=== PATIENT | male | born 1955 | race Caucasian/White ===

== ENCOUNTER 2017-04-27 05:03 | Inpatient (IN) | payer BC, OTHER ==
[2017-03-15 11:12] VITALS: BMI 28.0
--- NOTE | 2017-03-15 11:37 | PAT Medication Instructions ---
Service Date Mar 15, 2017. Current Home Medication List Famotidine (Pepcid), 20 MG PO DAILY PRN for STOMACH Fexofenadine Hcl (Fe Allergy), 1 TAB PO BID PRN for ALLERGIES Finasteride (Propecia), 1 MG PO QAM Ibuprofen (Advil), 200-600 MG PO Q4H PRN for Pain Simvastatin (Zocor), 20 MG PO QPM Medication Instructions For Your Scheduled Surgery - Check with surgeon for instructions: Ibuprofen (Advil), 200-600 MG PO Q4H PRN for Pain - Hold the following medications the morning of surgery: Finasteride (Propecia), 1 MG PO QAM Fexofenadine Hcl (Fe Allergy), 1 TAB PO BID PRN for ALLERGIES (if needed) Famotidine (Pepcid), 20 MG PO DAILY PRN for STOMACH (if needed) - Take the following medications as scheduled the night before surgery: Simvastatin (Zocor), 20 MG PO QPM Fexofenadine Hcl (Fe Allergy), 1 TAB PO BID PRN for ALLERGIES (if needed) Famotidine (Pepcid), 20 MG PO DAILY PRN for STOMACH (if needed) If you have any questions please call us at [phone] or [phone] or [phone]
--- NOTE | 2017-03-15 12:17 | DIAGNOSTIC IMAGING REPORT ---
CHEST 2 VIEWS ROUTINE CLINICAL HISTORY: 61 years-old Male presenting with preoperative assessment. TECHNIQUE: PA and lateral views of the chest were obtained. COMPARISON: None. FINDINGS: Cardiomediastinal silhouette normal. Hyperinflation. No focal infiltrate. No pleural effusion or pneumothorax. Osseous structures normal. Upper abdomen normal. IMPRESSION: 1. Hyperinflation. Otherwise no acute cardiopulmonary disease. Electronically signed by: Surya Lopez M.D. 03/15/2017 12:15 PM Dictated Date/Time: 03/15/2017 12:15 PM
[2017-03-15 12:30] LABS: BASO % 0.7 %; BASO ABS # 0.03 K/uL (0-0.2); COMPLETE YES; EOS % 2.7 %; HEMATOCRIT 41.7 % (42-52); IG% 0.2 %; LYMPH % 29.5 %; MEAN CELL VOLUME 91.4 fL (80-100); MEAN CORPUSCULAR HEMOGLOBIN 30.3 pg (25-34); MEAN CORPUSCULAR HGB CONC 33.1 g/dl (32-36); MEAN PLATELET VOLUME 9.6 fL (7.4-10.4); MONO % 9.8 %; NEUT % 57.1 %; PLATELET COUNT 207 K/uL (130-400); RED BLOOD COUNT 4.56 M/uL (4.7-6.1)
[2017-03-15 12:41] LABS: INR 0.9 (0.9-1.1); PARTIAL THROMBOPLASTIN RATIO 1.1; PROTHROMBIN TIME (PATIENT) 10.1 SECONDS (9.0-12.0)
[2017-03-15 14:15] LABS: BUN/CREATININE RATIO 16.3 (10-20); CREATININE 0.87 mg/dl (0.60-1.40); POTASSIUM 4.4 mmol/L (3.5-5.1)
--- NOTE | 2017-04-24 09:17 | HISTORY & PHYSICAL EXAMINATION ---
DATE OF ADMISSION: 04/27/2017 CHIEF COMPLAINT: Bilateral knee pain and discomfort, right side greater than left. HISTORY OF PRESENT ILLNESS: The patient is a 61-year-old gentleman who presents for surgical treatment of his right knee. He has a fairly long history of bilateral knee pain and discomfort, right side greater than left. He recently moved to this area from [place]. He does have a history of open knee surgery in 1970 on his right knee and one in 1972 on the left. He has continued to have persistent and progressive pain that gradually gotten worse year by year over the past 10 years. It is limiting his walking ability. The more he walks, the more it hurts. It is global pain. He has nighttime pain. He takes Advil with minimal relief. He would like to proceed with a right knee replacement. PAST MEDICAL HISTORY: 1. Depression. 2. Elevated cholesterol. 3. Osteoarthritis. 4. BPH. PAST SURGICAL HISTORY: 1. Right knee surgery in 1970. 2. Left knee in 1972. ALLERGIES: Seasonal. CURRENT MEDICATIONS: 1. Simvastatin. 2. Finasteride. 3. Advil. SOCIAL HISTORY: A 61-year-old male. He is . He is from [facility] but now lives here. He does not smoke. FAMILY HISTORY: Negative for heart disease, diabetes, or blood clots. REVIEW OF SYSTEMS: Negative for diabetes. Denies any chest pain, shortness of breath. No bleeding problems. He does have multiple other musculoskeletal aches and pains. No history of DVT or PE. PHYSICAL EXAMINATION: GENERAL: A pleasant, middle-aged male. He looks to be in good health. HEENT: Benign. NECK: Supple. No lymphadenopathy. LUNGS: Clear to auscultation. HEART: Has a regular rate and rhythm. ABDOMEN: Soft, nontender, nondistended. EXTREMITIES: Grossly neurovascularly intact except as follows. Examination of the right knee reveals the patient walks with a slight varus alignment to his knee. He does limp on the right side. He has about 15 degree flexion contracture with knee and can bend to about 100 degrees. It is pretty stiff. He has no pain with hip motion. He has a moderate size joint effusion. He does have a medial incision that is well-healed. X-RAYS: X-rays of the right knee reviewed. It shows advanced right knee tricompartmental DJD. He has slight valgus alignment. He has advanced disease in all 3 compartments. ASSESSMENT: A 61-year-old male with a history of bilateral open knee surgery in the past in the 70s with advanced bilateral knee pain and degenerative joint disease, right side more symptomatic than the left. He would like to proceed with a right knee replacement. PLAN: We are going to take him to the operating room and do a right total knee replacement. The risks and benefits of this procedure were explained to the patient including but not limited to DVT, PE, , infection, neurological injury, vascular injury, bleeding problem, pain, limited range of motion, stiffness, failure to relieve symptoms, incomplete relief of symptoms, need for further surgery in the future, fracture, etc. The patient understands and desires to proceed. Informed consent was obtained. We will try to use his previous open incision if possible. We will probably put some vancomycin in the cement due to his previous surgery. As far as discharge plans, he is planning to be discharged to home using [facility] home health program.
[~2017-04-27] VITALS: Ht 177.8 cm; Wt 89.4 kg
[2017-04-27] VITALS (10 sets, daily range): BP systolic 99–128; BP diastolic 56–79; PULSE 46–71; TEMP 36.3–37.4; O2SAT 93–100; Ht 177.8 cm; Wt 89.4 kg
[~2017-04-27 05:03] MED LIST: FAMO20TA11 PO; FEXO1TAB49 PO; FINA1TAB3 PO; IBUP-1050 PO; SIMV20TA2 PO
[2017-04-27] MEDS ORDERED: BUPIVACAINE LIPOSOME 266 MG, BUPIVACAINE/EPINEPHRINE INJ 50 ML, SODIUM CHLORIDE 0.9% PF... INFIL SCH ×3 (06:00)
[2017-04-27] MEDS ORDERED: LACTATED RINGER'S 1000ML 1,000 ML IV SCH (06:00)
[2017-04-27] MEDS ORDERED: FAMOTIDINE 20 MG TAB PO SCH (06:00)
[2017-04-27] MEDS ORDERED: LACTATED RINGER'S 1000ML IV SCH (06:00)
[2017-04-27] MEDS ORDERED: METOCLOPRAMIDE HCL 10 MG TAB PO SCH (06:00)
[2017-04-27] MEDS ORDERED: LACTATED RINGER'S 1000ML 500 ML IV ONE (06:00)
[2017-04-27] MEDS ORDERED: ACETAMINOPHEN 500 MG TAB PO SCH (06:00)
[2017-04-27] MEDS ORDERED: CEFAZOLIN 2000MG IV PUSH 10 ML IV SCH (06:00)
[2017-04-27] MEDS ORDERED: GABAPENTIN 300 MG CAP PO SCH (06:00)
[2017-04-27] MEDS ORDERED: TRANEXAMIC ACID INJ 1,000 MG in SYRINGE 0 ML IV SCH (06:00)
[2017-04-27] MEDS ORDERED: SCOPOLAMINE 1.5 MG TDSY TD SCH (06:00)
[2017-04-27] MEDS ORDERED: BUPIVACAINE 0.25% 30 ML VIAL ONE (06:19)
[2017-04-27] MEDS ORDERED: BUPIVACAINE 0.5 % 5 MG/1 ML PF 10ML VIAL ONE (06:19)
[2017-04-27] MEDS ORDERED: MIDAZOLAM HCL 1 MG/ML 2ML VIAL ONE ×2 (06:42→06:43)
[2017-04-27] MEDS ORDERED: FENTANYL CITRATE INJ 50 MCG/1 ML 2 ML VIAL ONE (06:43)
[2017-04-27] MEDS ORDERED: BACITRACIN 50000 UNIT VIAL ONE (06:51)
[2017-04-27] MEDS ORDERED: BUPIVACAINE/EPINEPHRINE 0.25% 1:200,000 30 ML VIAL ONE (06:51)
[2017-04-27] MEDS ORDERED: BUPIVACAINE LIPOSOME 1/3% 266 MG/20 ML VIAL INFIL ONE (06:51)
[2017-04-27] MEDS ORDERED: SODIUM CHLORIDE 0.9% PF 50 ML VIAL ONE (06:51)
--- NOTE | 2017-04-27 06:55 | History & Physical Bridge Note ---
H&P Re-Evaluation Bridge Note: I have examined the patient, reviewed the History & Physical and in the interval since the performance of the History & Physical I have noted the following changes of clinical significance: No changes noted
[2017-04-27] MEDS ORDERED: VANCOMYCIN HCL 1000MG/20ML VIAL ONE (07:08)
[2017-04-27] MEDS ORDERED: PROPOFOL IV EMULSION 10 MG/ML 20 ML VIAL IV ONE (07:35)
[2017-04-27] MEDS ORDERED: MoRPHine SULFATE 2 MG/ML CARP ONE (08:59)
--- NOTE | 2017-04-27 09:12 | [facility] Post Operative Brief Note ---
Immediate Operative Summary Operative Date Apr 27, 2017. Pre-Operative Diagnosis Right knee degenerative joint disease Post-Operative Diagnosis Right knee degenerative joint disease Procedure(s) Performed Right total knee arthroplasty Surgeon Dr. Fernando Diaz Waste Reduction Coordinator Surgeon(s) Sudhir Puri PA-C Estimated Blood Loss 150cc Findings Right Knee DJD Fluids (cc crystalloids) 1750 cc Specimens A. Right knee bone and tissue Drains HMV Right Knee Anesthesia Spinal Complication(s) None Disposition Recovery Room / PACU
[2017-04-27] MEDS ORDERED: METOCLOPRAMIDE HCL INJ 5 MG/ML 2 ML VIAL IV PRN (09:15)
[2017-04-27] MEDS ORDERED: TAMSULOSIN HCL 0.4 MG CAP PO PRN (09:15)
[2017-04-27] MEDS ORDERED: ALUMINUM/MAGNESIUM/SIMETH (MAALOX MAX) 30 ML UDC PO PRN (09:15)
[2017-04-27] MEDS ORDERED: BISACODYL 10 MG SUPP PR PRN (09:15)
[2017-04-27] MEDS ORDERED: FEXOFENADINE HCL 180 MG TAB PO PRN (09:15)
[2017-04-27] MEDS ORDERED: ZOLPIDEM TARTRATE 5 MG TAB PO PRN (09:15)
[2017-04-27] MEDS ORDERED: FAMOTIDINE 20 MG TAB PO PRN (09:15)
[2017-04-27] MEDS ORDERED: ONDANSETRON INJ 2 MG/ML 2 ML VIAL IV PRN (09:15)
[2017-04-27] MEDS ORDERED: MAGNESIUM HYDROXIDE SUSP 30 ML UDC PO PRN (09:15)
[2017-04-27] MEDS ORDERED: SILVER SULFADIAZINE 1% CR 50 GM JAR EXT PRN (09:15)
[2017-04-27] MEDS ORDERED: DiphenhydrAMINE HCL 50 MG/ML VIAL IV PRN (09:15)
[2017-04-27] MEDS ORDERED: MoRPHine SULFATE 2 MG/ML CARP IV PRN (09:15)
--- NOTE | 2017-04-27 09:37 | DIAGNOSTIC IMAGING REPORT ---
R KNEE 1 OR 2 VIEWS ROUTINE CLINICAL HISTORY: Postop examination DEGENERATIVE ARTHRITIS COMPARISON: Outside study dated 10/05/2016 DISCUSSION: There are postsurgical changes of a total right knee arthroplasty and patellar resurfacing. Overlying skin suzie and surgical drains are evident. The femoral tibial components appear well seated. There is air within the soft tissues consistent with recent surgery. IMPRESSION: Postsurgical changes of a total right knee arthroplasty. Electronically signed by: Faheem Cassidy M.D. 04/27/2017 9:36 AM Dictated Date/Time: 04/27/2017 9:35 AM
--- NOTE | 2017-04-27 09:55 | Anesthesiology Progress Note ---
Anesthesia Post Op Note Date & Time Apr 27, 2017 at 09:55 Vital Signs Pain Intensity: 0 Vital Signs Past 12 Hours Date Time Temp Pulse Resp B/P (MAP) Pulse Ox O2 Delivery O2 Flow Rate FiO2 04/27/17 09:50 36.4 55 13 106/66 100 Nasal Cannula 2 04/27/17 09:14 36.4 98 12 112/68 100 Nasal Cannula 2 04/27/17 06:07 36.8 71 18 128/79 97 Room Air Notes Mental Status: alert / awake / arousable, participated in evaluation Pt Amnestic to Procedure: Yes Nausea / Vomiting: adequately controlled Pain: adequately controlled Airway Patency, RR, SpO2: stable & adequate BP & HR: stable & adequate Hydration State: stable & adequate Neuraxial Anesthesia: was administered, sensory block is resolving Anesthetic Complications: no major complications apparent
--- NOTE | 2017-04-27 09:58 | OPERATIVE REPORT ---
DATE OF OPERATION: 04/27/2017 SURGEON: Fernando Diaz MD TAX MAP TECHNICIAN: BERNIE Juárez. PREOPERATIVE DIAGNOSIS: Right knee degenerative joint disease. POSTOPERATIVE DIAGNOSIS: Same. PROCEDURE PERFORMED: Right cemented posterior stabilized total knee arthroplasty. COMPLICATIONS: None. ESTIMATED BLOOD LOSS: 150 mL. FLUID REPLACEMENT: 1750 mL crystalloid fluid replacement. TOURNIQUET TIME: 60 minutes at 300 mmHg. ANESTHESIA: Spinal with adductor canal block. DRAINS: Hemovac right knee x2. SPECIMENS: Right knee sent for pathology. OPERATIVE INDICATIONS: The patient is a 61-year-old gentleman who has had a long history of knee problems. He underwent open right knee surgery back in 1972. He has been through extensive conservative treatment over the years. Pain just gotten gradually worse and more debilitating. He developed a significant flexion contracture and valgus deformity to his knee. He elects to proceed with surgical treatment. OPERATIVE FINDINGS: Operative findings revealed advanced right knee tricompartment DJD. He had extensive grade 4 changes in the lateral femoral condyle and lateral tibial plateau and the posterolateral tibial plateau especially. He had a chronic ACL deficiency. He had osteophytes that were completely grown over the intercondylar notch area. He had grade 4 changes in the medial and patellofemoral compartment. His medial meniscus was absent. OPERATIVE IMPLANTS: Operative implants consisted of: 1. Biomet Vanguard size 75 right posterior bifemoral component. 2. Biomet size 87 tibial tray. 3. A 10 mm posterior stabilized polyethylene insert. 4. A 34 x 8.5 all poly patella. OPERATIVE PROCEDURE: The patient taken to the operating room, identified and placed on the operating table in supine position. All contact areas were appropriately padded. IV antibiotics were provided by the anesthesia team. A spinal anesthetic and adductor canal block had been provided in the holding area. Duron catheter was placed in sterile fashion. Right thigh tourniquet was then placed. The right lower extremity was then prepped and draped in the usual sterile fashion. The right leg was elevated and exsanguinated with Esmarch and tourniquet was placed at 300 mmHg. An anterior approach to the right knee was then performed through a curvilinear incision. I used his previous anteromedial incision from before and extended this distally as well as proximally over the extensor mechanism. Full thickness flaps were elevated off the extensor mechanism. A medial parapatellar arthrotomy incision was made. I did take great care to try and minimize subcutaneous dissection. The subperiosteal dissection was carried out medially. The fat pad was resected from beneath the patellar tendon. The patella was everted and knee was flexed. The osteophytes in the intercondylar notch area removed. The PCL was released. The ACL was chronically absent. The tibia subluxated anteriorly. Of note, on subluxating the tibia, there was quite a bit of bleeding throughout this case just from the veins throughout the entire knee. The external tibial alignment jig was then placed in the anterior face of the tibia and adjusted 12 mm medially. Proximal tibial cut was made to remove about 4-5 mm of bone from the medial side. This did cut just about the level of the most deficient aspect of the posterolateral tibial plateau and actually a little bit above the most deficient area. The tibia was sized to a size 87. Attention was then drawn to the femur. The distal femur was entered with a sharp drill bit. Intramedullary canal was suctioned. A right 5 degree valgus cutting guide was placed. Distal femoral cutting block was pinned in place. Distal femoral cut was made to take an additional 5 mm of bone off the distal femur. With the +3 cut, I did not quite get down to the intercondylar notch area and considering he had a significant flexion contracture, we elected to take a little bit more bone from the femur. The knee was brought out into full extension. I then released the IT band and the posterolateral capsule, taking great care to protect the peroneal nerve at all times. We did have to do a pretty extensive release to equalize the extension gap. The knee was then flexed. The femur was then sized to a size 75. I downsized this slightly. The AP cutting block was pinned parallel to the epicondylar axis, which was 3 degrees of external rotation. The anterior cut, anterior chamfer, posterior cut, posterior chamfer cuts were made. Box cutting guide was placed and adjusted slightly lateral and the box cut was made. The knee was flexed. The remnants of the medial and lateral meniscus were excised. I did have to release the popliteus to equalize the flexion gap. A trial femoral component was placed. Tibial tray was pinned in maximum external rotation and drill and stem punch were used to create defect in proximal tibia for the tibial tray. The knee was then trialed and a 10 mm insert fit most appropriately. I was able to get the knee out into full extension without much difficulty. The knee was stable and we elected to use these implants. Attention was then drawn to the patella. The patella was cleaned of all soft tissues. Patella thickness measured 25 mm, cut down to 14. It was sized to a size 34 patella. Lug holes were drilled for a 34 patella. The lateral osteophyte was removed. Patella button was placed. Knee was taken through range of motion and the patella tracked nicely with no thumbs test. Attention was then drawn toward placement of the permanent components. All trial components were removed. A bone plug was placed in the distal femur to limit blood loss. A double batch of Palacos G cement was mixed with an additional gram of vancomycin due to his previous open knee surgery. A size 75 right posterior stabilized femoral component, size 83 tibial tray, 10 mm posterior stabilized polyethylene insert, and a 34 x 8.5 all poly patella then cemented in place. Knee was brought out into full extension until the cement hardened. A final cement check was then performed. The patient did receive 1 gram of tranexamic acid. The tourniquet was then let down for a tourniquet time of 60 minutes. There was quite a number of bleeding vessels throughout the entire knee and a significant amount of bleeding. We spent 15-20 minutes cauterizing and trying to obtain meticulous hemostasis. There were several bleeding vessels on the posterior aspect of the tibia, particularly on the medial side and spent quite a bit of time obtaining meticulous hemostasis. Once this was complete, I irrigated the wound again. I elected to place 2 Hemovac drains. The extensor mechanism was then closed with a combination of #1 PDS suture and #1 Vicryl suture in a [id number] fashion. The extensor mechanism checked and found to be intact. The subcutaneous tissues were then closed with 2-0 Dexon suture in a buried interrupted fashion. Skin was closed skin suzie. Leg was then cleaned and dried and a sterile dressing of Xeroform, 4 x 4, sterile cast padding and Edd bandage were applied. The patient then transferred to the recovery room in stable condition. The patient tolerated the procedure with no complications. All needle and sponge counts were correct at the end of the operation. I did examine his foot at the end of the case and he had very brisk and normal refill with a normal pulse. I attest to the content of the Intraoperative Record and any orders documented therein. Any exceptions are noted below. SERGIO
[2017-04-27] MEDS ORDERED: EpHEDrine SULFATE INJ 50 MG/ML AMP IV PRN (10:00)
[2017-04-27] MEDS ORDERED: ATROPINE SULFATE 0.1 MG/ML 5ML SYR IV PRN (10:00)
[2017-04-27] MEDS: D5W AND 1/2NSS + 20MEQ KCL 1,000 ML IV SCH ×2 (13:12→20:48)
[2017-04-27] MEDS: FERROUS GLUCONATE 324 MG TAB PO SCH ×2 (13:20→18:04)
[2017-04-27] MEDS: ACETAMINOPHEN 500 MG TAB PO SCH ×2 (13:21→21:45)
[2017-04-27] MEDS: KETOROLAC TROMETHAMINE 30 MG/ML VIAL IV. SCH ×2 (13:22→20:48)
[2017-04-27] MEDS ORDERED: TRANEXAMIC ACID INJ 1,000 MG in SODIUM CHLORIDE 0.9% 100ML 100 ML IV SCH (15:00)
--- NOTE | 2017-04-27 15:45 | PROGRESS NOTE ---
DATE: 04/27/2017 SUBJECTIVE: A 61-year-old gentleman postop from a right knee replacement. He is doing well. He is still having pain in his knee. He denies any chest pain or shortness of breath. Not feeling dizzy or lightheaded. OBJECTIVE: VITAL SIGNS: Temperature 36.6. Vital signs stable. PHYSICAL EXAMINATION: GENERAL: Reveals a healthy, pleasant, middle-aged male. He is sitting up in bed and looks quite comfortable. LUNGS: Clear to auscultation. HEART: Regular rate and rhythm. ABDOMEN: Soft, nontender, nondistended. EXTREMITIES: Grossly neurovascularly intact except as follows: Examination of the right leg reveals the dressing to be clean, dry and intact. Leg is well aligned. He can dorsiflex and plantarflex his foot appropriately. He has got good distal pulse. He is neurologically intact. X-RAYS: X-rays of the right knee from recovery room were reviewed. It shows a right cemented posterior stabilized total knee arthroplasty. Components looked to be in good position. No signs of problems. ASSESSMENT: A 61-year-old gentleman postop from a right knee replacement, doing well. His pain is controlled. He is neurologically intact. PLAN: 1. DVT prophylaxis including thigh-high TEDs, SCDs, and aspirin twice a day. 2. PT/OT. Weight bear as tolerated. Right total knee protocol. 3. Pain control, doing well with current pain regimen. 4. IV antibiotics x24 hours. 5. Disposition: Plan to discharge to home with some home health once adequately recovered.
[2017-04-27] MEDS: CHECK SCOPOLAMINE PATCH PLACEMENT SCH (16:05)
[2017-04-27] MEDS: CEFAZOLIN IV 2,000 MG in SYRINGE 0 ML IV SCH (16:06)
[2017-04-27] MEDS: OXYCODONE HCL IR 5 MG TAB (IMMEDIATE RELEASE) PO PRN (17:11)
[2017-04-27] MEDS: SIMVASTATIN 20 MG TAB PO SCH (20:48)
[2017-04-27] MEDS: DOCUSATE SODIUM 100 MG CAP PO SCH (20:49)
[2017-04-27] MEDS: SENNA 8.6 MG TAB PO SCH (20:49)
[2017-04-27] MEDS: ASPIRIN 325 MG ECTAB PO SCH (20:49)
[2017-04-27] MEDS: TAPENTADOL ER 50 MG TABCR PO SCH (20:50)
[2017-04-28] MEDS: CEFAZOLIN IV 2,000 MG in SYRINGE 0 ML IV SCH (00:20)
[2017-04-28] MEDS: CHECK SCOPOLAMINE PATCH PLACEMENT SCH ×3 (00:20→16:04)
[2017-04-28] MEDS: KETOROLAC TROMETHAMINE 30 MG/ML VIAL IV. SCH ×4 (01:47→20:45)
[2017-04-28 03:25] VITALS: BP 99/60; PULSE 62; TEMP 36.7; O2SAT 97
[2017-04-28] MEDS: D5W AND 1/2NSS + 20MEQ KCL 1,000 ML IV SCH (04:53)
[2017-04-28] MEDS: ACETAMINOPHEN 500 MG TAB PO SCH ×3 (05:29→21:47)
[2017-04-28 06:55] LABS: HEMATOCRIT 28.1 % (42-52); MEAN CELL VOLUME 92.7 fL (80-100); MEAN CORPUSCULAR HEMOGLOBIN 30.7 pg (25-34); MEAN CORPUSCULAR HGB CONC 33.1 g/dl (32-36); MEAN PLATELET VOLUME 9.6 fL (7.4-10.4); PLATELET COUNT 146 K/uL (130-400); RED BLOOD COUNT 3.03 M/uL (4.7-6.1); WHITE BLOOD COUNT 6.09 K/uL (4.8-10.8)
[2017-04-28 07:35] LABS: CALCIUM 8.1 mg/dl (8.5-10.1); CREATININE 0.89 mg/dl (0.60-1.40)
[2017-04-28 08:07] VITALS: BP 104/60; PULSE 61; TEMP 36.9; O2SAT 96
[2017-04-28] MEDS: ASPIRIN 325 MG ECTAB PO SCH ×2 (08:43→20:44)
[2017-04-28] MEDS: TAPENTADOL ER 50 MG TABCR PO SCH ×2 (08:43→20:44)
[2017-04-28] MEDS: DOCUSATE SODIUM 100 MG CAP PO SCH ×2 (08:44→20:44)
[2017-04-28] MEDS: MULTIVITAMIN TAB PO SCH (08:44)
[2017-04-28] MEDS: PANTOprazole SOD 40 MG TAB PO SCH (08:44)
[2017-04-28] MEDS: FERROUS GLUCONATE 324 MG TAB PO SCH ×3 (08:44→18:21)
[2017-04-28] MEDS: OXYCODONE HCL IR 5 MG TAB (IMMEDIATE RELEASE) PO PRN (08:51)
[2017-04-28 09:26] VITALS: BP 105/53
--- NOTE | 2017-04-28 10:20 | PROGRESS NOTE ---
DATE: 04/28/2017 SUBJECTIVE: A 61-year-old gentleman postop day 1 from right knee replacement, doing quite well. Pain is much milder than what he expected. Denies any chest pain or shortness of breath. Not feeling dizzy or lightheaded. OBJECTIVE: VITAL SIGNS: Temperature 36.9. Vital signs stable. GENERAL: Reveals a healthy, pleasant, middle-aged male. He is sitting up in bed, looks pretty comfortable. EXTREMITIES: Examination of the right leg reveals the dressing to be clean, dry, and intact. He can dorsiflex and plantarflex his foot appropriately. He is neurologically intact. LABORATORY DATA: Hemoglobin 9.3. Hematocrit 28.1. Electrolytes are stable. ASSESSMENT: A 61-year-old gentleman postop day 1 from a right knee replacement, doing pretty well. Had a significant amount of bleeding intraoperatively, but the leg looks good. Drainage has decreased. He is neurologically intact. PLAN: 1. DVT prophylaxis including thigh-high TEDs, SCDs, and aspirin twice a day. 2. PT/OT. Weightbearing as tolerated. Right total knee protocol. 3. Pain control, doing pretty well with current pain regimen. 4. Anemia. Currently, asymptomatic, we will continue iron supplementation. 5. Disposition: Plan to discharge to home with some home health once adequately recovered.
[2017-04-28] MEDS ORDERED: ACET-24 PO (10:29)
[2017-04-28] MEDS ORDERED: MORP-157 PO (10:29)
[2017-04-28] MEDS ORDERED: ASPEC325 PO (10:29)
[2017-04-28] MEDS ORDERED: FRRG PO (10:29)
[2017-04-28] MEDS ORDERED: RXC5 PO (10:29)
--- NOTE | 2017-04-28 10:31 | Discharge Instructions ---
Discharge Instructions Date of Service Apr 28, 2017. Admission Reason for Admission: Right Knee Degenerative Joint Disease Discharge Discharge Diagnosis / Problem: Right Knee Replacement Discharge Goals Goal(s): Decrease discomfort, Improve function, Increase independence, Improve disease control, Therapeutic intervention Activity Recommendations Activity Limitations: per Instructions/Follow-up section Weightbearing Status: Left weightbearing . Instructions / Follow-Up Instructions / Follow-Up ACTIVITY RECOMMENDATIONS: Physical Therapy: * You will go to physical therapy three times each week for four to six weeks after your surgery in order to regain your knee range of motion and to retrain your knee to work properly. * It is just as important to make sure you are getting your knee perfectly straight as it is to regain your knee bend. * Taking a pain pill an hour before therapy can help you have a more productive and comfortable therapy session. Home Exercise: * You were shown a series of exercises (heel props, heel slides, etc.) in the hospital. Do these exercises three to four times each day including the exercises you were shown in physical therapy. Walking: * Get up and walk several times each day. For the first four weeks, try not to stand or walk for more than one hour at a time. If you do stand or walk for more than one hour, you will not hurt anything, but your knee and leg will likely swell. * As you feel comfortable, you may change from the walker or crutches to a cane and then to independent walking. MEDICATIONS: New Medicine: * You will likely be taking one or more of these medications: 1. MS Contin - A long-acting pain medication. Take 1 tablet twice a day for the first ten days to decrease your baseline level of pain. 2. Oxycodone - A quick and shorter-acting pain medication. Take one to two tablets every four to six hours to lessen your pain. 3. Iron Sulfate - Take three times each day for the month after surgery to help you replace the blood lost during surgery. 4. Aspirin - Thins your blood to lessen the chance of forming a blood clot. * The most common side effects of pain medicine and iron are nausea and constipation. If nausea or constipation is too much of a problem or if you have any questions about your new medicines or doses, call [facility] at [phone]. We will try to help you manage these issues. VERY IMPORTANT TO READ AND REVIEW" Pain: * The immediate post-operative period after knee replacement surgery is often quite painful. * You are given a prescription for pain medicine. You should take it, as directed, when you need it, especially before physical therapy and before going to bed. Pain that interferes with sleep is very common and can last several months. * You will likely need pain medicine for the first four to six weeks. It will not stop all of the pain. The pain will lessen and as you feel better, you may change to milder pain medicine such as Tylenol. * The most common side effects of pain medicine are nausea and constipation, so don't take more than you need. SPECIAL CARE INSTRUCTIONS: TEDs/Elastic Stockings: * The white elastic stockings help limit swelling and prevent blood clots from forming in your legs. The more you wear them, the more they work. * Wear them for six weeks after knee replacement surgery and four weeks after partial knee replacement. Prevention of Infection: * Take antibiotics one hour before any dental cleaning, dental work, urological procedure, gastrointestinal procedure or any invasive surgery in order to prevent your new joint from getting infected. * You may get the antibiotics from the doctor performing the procedure or you may call our office at before and we will call in a prescription to the pharmacy of your choice. Things to Watch For: * Drainage from the incision site that occurs more than one week after your surgery. * Severely increased knee/leg pain or swelling. * Increased redness at the incision site. * Fever above 102 degrees Fahrenheit. * Unusual chest pain or shortness of breath. * Unusual pain or burning with urination. Call [facility] at with any of the above problems or if you have any questions about your medicines or recovery. FOLLOW UP VISIT: Make an appointment to see your doctor for approximately two weeks after surgery for a progress check and staple removal by calling the office at . Current Hospital Diet Patient's current hospital diet: Regular Diet Discharge Diet Recommended Diet: Regular Diet Procedures Procedures Performed: Right total knee arthroplasty Pending Studies Studies pending at discharge: no Medical Emergencies . Who to Call and When: Medical Emergencies: If at any time you feel your situation is an emergency, please call 541 immediately. . Non-Emergent Contact Non-Emergency issues call your: Surgeon . "Provider Documentation" section prepared by Fernando Diaz. . VTE Core Measure Inpt VTE Proph given/why not?: Other Anticoagulation, T.E.D. Stockings, SCD's
[2017-04-28 11:12] VITALS: BP 105/58; PULSE 61; TEMP 36.7; O2SAT 96
[2017-04-28 15:21] VITALS: BP 105/61; PULSE 96; TEMP 37; O2SAT 93
[2017-04-28] MEDS: SIMVASTATIN 20 MG TAB PO SCH (20:46)
[2017-04-28] MEDS: SENNA 8.6 MG TAB PO SCH (20:46)
[2017-04-28 23:22] VITALS: BP 110/64; PULSE 67; TEMP 37.1; O2SAT 97
[2017-04-29] MEDS: CHECK SCOPOLAMINE PATCH PLACEMENT SCH ×2 (00:11→07:47)
[2017-04-29] MEDS: KETOROLAC TROMETHAMINE 30 MG/ML VIAL IV. SCH ×2 (01:59→07:48)
[2017-04-29] MEDS: ACETAMINOPHEN 500 MG TAB PO SCH (05:50)
[2017-04-29 06:00] VITALS: BP 124/78; PULSE 66; TEMP 36.8; O2SAT 92
--- NOTE | 2017-04-29 07:24 | PROGRESS NOTE ---
DATE: 04/29/2017 SUBJECTIVE: A 61-year-old gentleman postop day 2 from a right knee replacement. He is doing pretty well. Pain has been controlled. Therapy has gone well. No chest pain or shortness of breath. Not feeling dizzy or lightheaded. OBJECTIVE: VITAL SIGNS: Temperature 36.8. Vital signs stable. GENERAL: Reveals a healthy, pleasant, middle-aged male. He is lying in bed and doing his leg lift when I went into visit him this morning. EXTREMITIES: Examination of the right leg reveals the leg to be well aligned. Not a lot of swelling. No significant drainage. He can do a good straight leg raise. He is neurologically intact. ASSESSMENT: A 61-year-old gentleman postop day 2 from right knee replacement, doing well. His pain is controlled. PLAN: 1. DVT prophylaxis including thigh-high TEDs, SCDs, and aspirin twice a day. 2. PT/OT. Weight bear as tolerated. Right total knee protocol. 3. Pain control, doing well with current pain regimen. 4. Disposition: Plan to discharge to home with some home health later today.
[2017-04-29] MEDS: TAPENTADOL ER 50 MG TABCR PO SCH (07:45)
[2017-04-29] MEDS: DOCUSATE SODIUM 100 MG CAP PO SCH (07:46)
[2017-04-29] MEDS: PANTOprazole SOD 40 MG TAB PO SCH (07:46)
[2017-04-29] MEDS: FERROUS GLUCONATE 324 MG TAB PO SCH (07:46)
[2017-04-29] MEDS: MULTIVITAMIN TAB PO SCH (07:46)
[2017-04-29] MEDS: ASPIRIN 325 MG ECTAB PO SCH (07:47)
[2017-04-29 10:10] VITALS: BP 124/78; PULSE 66; TEMP 36.8; O2SAT 92
[2017-04-29] MEDS: OXYCODONE HCL IR 5 MG TAB (IMMEDIATE RELEASE) PO PRN (11:31)
== END 2017-04-29 11:49 | disposition home health service (06) | DRG 470 ==
LOC: C.ACU 05:03 → C.3E 06:44 → ENRESERV 09:40
PROVIDERS: ADMIT Orthopaedic Surgery Sports Medicine; ATTEND Orthopaedic Surgery Sports Medicine
PROC: 0SRC0J9 Replacement of Right Knee Joint with Synthetic Substitute, Cemented, Open Approach (ICD-10-PCS; principal; 2017-04-27 07:00)
DX: M17.11 Unilateral primary osteoarthritis, right knee (principal); D64.9 Anemia, unspecified; E78.00 Pure hypercholesterolemia, unspecified; N40.0 Benign prostatic hyperplasia without lower urinary tract symptoms; Z98.890 Other specified postprocedural states; Z79.899 Other long term (current) drug therapy

== ENCOUNTER → 2017-05-31 | Outpatient (CLI) | payer OTHER ==
[~2017-05-31] MED LIST changes: +ACET-24 PO; +ASPEC325 PO; +FRRG PO; +RXC5 PO
[2017-05-31 11:04] LABS: URINE APPEARANCE CLEAR (CLEAR); URINE BILIRUBIN NEG (NEG); URINE COLOR YELLOW; URINE EPITHELIAL CELL AUTO 0-5 /lpf (0-5); URINE NITRITE NEG (NEG); URINE PH 7.5 (4.5-7.5); URINE SPECIFIC GRAVITY 1.023 (1.000-1.030); UROBILINOGEN NEG (NEG)
[2017-05-31 11:12] LABS: MANUAL MICROSCOPIC REQUIRED? NO; REVIEW REQ? NO
[2017-05-31 11:22] LABS: CHOLESTEROL/HDL RATIO 2.8; PROSTATE SPECIFIC ANTIGEN 0.226 ng/ml (0.000-4.000)
== END | disposition home or self-care (01) ==
LOC: C.LABBC 07:56
PROVIDERS: ATTEND Physician Assistant
DX: R35.0 Frequency of micturition (principal); E78.5 Hyperlipidemia, unspecified; N40.1 Benign prostatic hyperplasia with lower urinary tract symptoms